=== PATIENT | male | born 1985 | race Caucasian/White ===

== ENCOUNTER 2024-09-02 19:21 | Emergency (ER) | payer OTHER ==
[~2024-09-02] VITALS: Ht 177.8 cm; Wt 95.7 kg
[~2024-09-02 19:21] MED LIST: BUPR150T2 PO; CEPH500 PO; CITA20 PO; CYCL10 PO; HYDACE5 PO; NAPR500 PO; PARO30; PENVK500 PO; RXCYCL10 PO; VENL75ER PO; VIIBRYD40 MG PO; [UNRECOGNIZED DRUG - OTHER]
[2024-09-02 19:57] VITALS: BP 132/70
[2024-09-02] MEDS ORDERED: Diphth,Pertuss(Acell),Tet Vac 0.5 ML VIAL IM ONE (23:00)
== END 2024-09-02 23:14 | disposition home or self-care (01) ==
LOC: ER 19:21
DX: S01.01XA Laceration without foreign body of scalp, initial encounter (principal); F17.200 Nicotine dependence, unspecified, uncomplicated; Z79.01 Long term (current) use of anticoagulants; W22.8XXA Striking against or struck by other objects, initial encounter
CPT/HCPCS: 12001; 90471; 90715; 99282-25